=== PATIENT | male | born 1950 | race Caucasian/White ===

== ENCOUNTER 2021-06-18 07:29 | Emergency (ER) | payer OTHER, MEDICARE, MEDICAID ==
[~2021-06-18] VITALS: Ht 172.7 cm; Wt 71.0 kg
[2021-06-18 07:33] VITALS: BP 142/86
[2021-06-18] MEDS ORDERED: PRED20TA PO (09:31)
== END 2021-06-18 09:51 | disposition home or self-care (01) ==
LOC: ER 07:29
DX: J44.1 Chronic obstructive pulmonary disease with (acute) exacerbation (principal); Z20.822 Contact with and (suspected) exposure to COVID-19; R05.9 Cough, unspecified; R09.89 Other specified symptoms and signs involving the circulatory and respiratory systems; R06.02 Shortness of breath; Z79.899 Other long term (current) drug therapy
CPT/HCPCS: 71045; 87635; 99284; C9803

== ENCOUNTER 2021-10-09 13:19 | Emergency (ER) | payer OTHER, MEDICARE, MEDICAID ==
[~2021-10-09] VITALS: Ht 172.7 cm; Wt 72.7 kg
[~2021-10-09 13:19] MED LIST: ALBU0.63 NEB; ALBU8.5H17 IH; ASPI81TA53 PO; ATOR20TA66 PO; DICL100G30 TOP; LOP25T PO; LORA10TA7 PO; MONT-40 PO; TICA90TA PO
[2021-10-09 13:30] VITALS: BP 141/75
== END 2021-10-09 17:53 | disposition left against medical advice (07) ==
LOC: ER 13:20
DX: Z76.0 Encounter for issue of repeat prescription (principal); Z53.21 Procedure and treatment not carried out due to patient leaving prior to being seen by health care provider

== ENCOUNTER 2021-10-18 13:22 | Day surgery (SDC) | payer MEDICARE, MEDICAID ==
[2021-10-13 09:09] LABS: BASOPHILS % (AUTO) 0.6 % (0-1); EOSINOPHILS # (AUTO) 0.1 X10'3 (0-0.9); EOSINOPHILS % (AUTO) 2.1 % (0-6); HEMATOCRIT 44.8 % (42.0-52.0); HEMOGLOBIN 14.4 g/dl (14.0-17.9); LYMPHOCYTES % (AUTO) 14.7 % (21-51); MEAN CORPUSCULAR HGB CONC 32.2 g/dL (33.0-36.5); MEAN CORPUSCULAR VOLUME 90.1 FL (78-98); MEAN PLATELET VOLUME 7.8 FL (7.4-10.4); MONOCYTES # (AUTO) 0.6 X10'3 (0-0.9); MONOCYTES % (AUTO) 8.7 % (2-12); NEUTROPHILS % (AUTO) 73.9 % (42-75); PLATELET COUNT 290 X10'3 (140-440); RED BLOOD COUNT 4.97 X10'6 (4.70-6.10); RED CELL DISTRIBUTION WIDTH 15.6 % (11.5-14.5); WHITE BLOOD COUNT 6.8 X10'3 (4.5-11.0)
[2021-10-13 09:20] LABS: APTT 28 SECONDS (22-32)
[2021-10-13 09:35] LABS: ANION GAP 8 (8-16); BLOOD UREA NITROGEN 13 MG/DL (7-18); BUN/CREATININE RATIO 14.6 (5.4-32.0); CALCIUM 8.8 MG/DL (8.5-10.1); CHLORIDE 109 MMOL/L (99-107); CREATININE 0.89 MG/DL (0.60-1.10); GLUCOSE 132 MG/DL (70-104); POTASSIUM 4.1 MMOL/L (3.5-5.1); SODIUM 146 MMOL/L (135-145); TOTAL CARBON DIOXIDE 29.1 MMOL/L (24-32); eGFR 85 ML/MIN
[2021-10-13 09:36] LABS: ALBUMIN 3.8 G/DL (3.4-5.0)
[~2021-10-18] VITALS: Ht 172.7 cm; Wt 73.0 kg
[2021-10-18] VITALS (9 sets, daily range): BP systolic 99–142; BP diastolic 59–73
[2021-10-18] MEDS ORDERED: normal saline 1,000 ML IV SCH (13:35)
[2021-10-18] MEDS ORDERED: LORazepam 0.5 MG tablet PO PRN (13:35)
[2021-10-18] MEDS ORDERED: diphenhydrAMINE 25mg capsule PO PRN (13:35)
[2021-10-18] MEDS ORDERED: METO25TA6 PO (13:39)
[2021-10-18] MEDS ORDERED: ASPI-1265 PO (13:39)
[2021-10-18] MEDS ORDERED: TICA90TA2 PO (13:39)
[2021-10-18] MEDS ORDERED: ATOR40TA72 PO (13:41)
[2021-10-18] MEDS ORDERED: nitroGLYCERIN-Tridil 50MG/D5W 250 ML IV ONE (14:23)
[2021-10-18] MEDS ORDERED: verapamil 2.5 mg/ml inj IV ONE (14:23)
[2021-10-18] MEDS ORDERED: fentaNYL/PF 50MCG/1 ML 2ML syringe ONE (14:24)
[2021-10-18] MEDS ORDERED: LIDOcaine 1% (10mg/ml)w/preservative inj. 20ml MDV ONE (14:24)
[2021-10-18] MEDS ORDERED: midazolam 1 mg/ML 2ml injection ONE (14:24)
[2021-10-18] MEDS ORDERED: iohexol 350MG/ML 100ml bottle IV ONE (14:24)
[2021-10-18] MEDS ORDERED: heparin 1,000unit/ml 10ml vial 10 ML ONE (14:24)
[2021-10-18] MEDS ORDERED: iohexol 350 MG/ML 50ML vial IV ONE (15:09)
[2021-10-18] MEDS ORDERED: HYDROcodone/acetaminophen 10/325mg tab PO PRN (16:05)
[2021-10-18] MEDS ORDERED: HYDROcodone/acetaminophen 5mg/325mg tablet PO PRN (16:05)
[2021-10-18] MEDS ORDERED: OXAZEpam 15mg capsule PO PRN (16:05)
[2021-10-18] MEDS ORDERED: ondansetron/PF 4mg/2ml inj IV PRN (16:05)
[2021-10-18] MEDS ORDERED: proCHLORperazine 10 MG/2 ml inj IV PRN (16:05)
== END 2021-10-18 18:00 | disposition home or self-care (01) ==
LOC: SSTAY O 13:22
PROVIDERS: ATTEND Internal Medicine Interventional Cardiology
DX: R94.39 Abnormal result of other cardiovascular function study (principal); R07.89 Other chest pain; I25.10 Atherosclerotic heart disease of native coronary artery without angina pectoris; I10 Essential (primary) hypertension; E78.5 Hyperlipidemia, unspecified; J44.9 Chronic obstructive pulmonary disease, unspecified; Z79.899 Other long term (current) drug therapy
CPT/HCPCS: 36415; 80048; 85025; 85610; 85730; 93005; 93459; 99152; C1769; C1894; J1644; J2250; J3010; J3490; J7030; Q0163; Q9967; A4620; A5120

== ENCOUNTER 2021-10-25 05:30 | Inpatient (IN) | payer MEDICARE, MEDICAID ==
[2021-10-21 11:30] LABS: BASOPHILS % (AUTO) 0.8 % (0-1); EOSINOPHILS % (AUTO) 0.4 % (0-6); LYMPHOCYTES # (AUTO) 0.9 X10'3 (1.1-4.8); LYMPHOCYTES % (AUTO) 15.7 % (21-51); MEAN CORPUSCULAR HEMOGLOBIN 29.5 PG (27.0-31.0); MEAN CORPUSCULAR HGB CONC 32.7 g/dL (33.0-36.5); MEAN CORPUSCULAR VOLUME 90.3 FL (78-98); MEAN PLATELET VOLUME 7.8 FL (7.4-10.4); MONOCYTES # (AUTO) 0.7 X10'3 (0-0.9); MONOCYTES % (AUTO) 11.5 % (2-12); NEUTROPHILS # (AUTO) 4.3 X10'3 (1.8-7.7); NEUTROPHILS % (AUTO) 71.6 % (42-75); PRE OP HEMATOCRIT 42.5 % (42.0-52.0); PRE OP HEMOGLOBIN 13.9 g/dL (14.0-17.9); PRE OP PLATELET COUNT 225 X10'3 (140-440)
[2021-10-21 11:33] LABS: CLARITY,URINE CLEAR (Clear); GLUCOSE, URINE NEGATIVE (Neg); KETONES,URINE NEGATIVE (Neg); LEUKOCYTE ESTERASE ,URINE NEGATIVE (Neg); NITRITES, URINE NEGATIVE (Neg); OCCULT BLOOD,URINE TRACE-INTACT (Neg); PROTEIN,URINE NEGATIVE (Neg); UROBILINOGEN,URINE 0.2 E.U/dL (0.2-1.0)
[2021-10-21 11:36] LABS: COLOR,URINE STRAW (Yellow); UA COLLECTION TYPE CLN CATCH MIDSTREAM
[2021-10-21 11:42] LABS: BACTERIA,URINE NONE SEEN /HPF (Neg); MUCUS STRANDS NONE SEEN /LPF (Neg); RBC,URINE 0-2 /HPF (0-2); SQUAMOUS EPITHELIAL CELL,UR NONE SEEN /LPF (FEW); WBC,URINE 0-4 /HPF (0-4)
[2021-10-21 11:46] LABS: PRE OP INR 1.1 INR; PRE OP PROTIME 11.2 SECONDS (9.0-12.0)
[2021-10-21 11:54] LABS: ALBUMIN 3.6 G/DL (3.4-5.0); ALKALINE PHOSPHATASE 93 IU/L (46-116); BLOOD UREA NITROGEN 10 MG/DL (7-18); BUN/CREATININE RATIO 10.8 (5.4-32.0); CALCIUM 8.4 MG/DL (8.5-10.1); CHLORIDE 103 MMOL/L (99-107); CREATININE 0.93 MG/DL (0.60-1.10); PRE OP ALT 19 U/L (30-65); PRE OP ANION GAP 13 (8-16); PRE OP AST 18 U/L (10-37); PRE OP BILIRUB, TOTAL 0.4 MG/DL (0.0-1.0); PRE OP GLUCOSE 105 MG/DL (70-104); PRE OP SODIUM 142 MMOL/L (135-145); TOTAL PROTEIN 7.2 G/DL (6.4-8.2); eGFR 80 ML/MIN
[2021-10-21 11:57] LABS: PRE OP POTASSIUM 4.2 MMOL/L (3.4-5.1)
[2021-10-24 06:30] LABS: ABG BASE EXCESS -1.2 mmol/L (-2.0-2.0); ABG OXYGEN SATURATION 94.9 % (94-97); ABG PCO2 (T) 37.2 mmHg (35.0-48.0); ABG PO2 (T) 71.6 mmHg (75.0-100.0); FCOHb 4.1 % (0.0-3.9); FMetHb 0.3 % (0.0-1.5); FO2Hb 90.7 % (94-97)
[~2021-10-25] VITALS: Ht 170.2 cm; Wt 72.3 kg
[2021-10-25] VITALS (25 sets, daily range): BP systolic 89–123; BP diastolic 39–89
[~2021-10-25 05:30] MED LIST changes: +ASPI-1265 PO; -ASPI81TA53 PO; -ATOR20TA66 PO; +ATOR40TA72 PO; +DOCUMENT DATE & TIME OF BETA-BLOCKER PO ONE; +FLUT16SP13 BOTHNARES; -LOP25T PO; +LORazepam 2 mg/ml vial IV PRN; +METO25TA6 PO; -TICA90TA PO; +TICA90TA2 PO; +albuterol 2.5 MG/3 ML nebule NEB ONE; +ceFAZolin 1000mg inj ONE; +cefazolin/dext.iso 2gm/50ml IV ONE; +epiNEPHrine 1 mg/ml inj ONE; +famotidine 20mg tablet PO ONE; +gabapentin 400mg capsule PO ONE; +ringers solution, lacted 1,000 ML IV SCH; +vancomycin 1,500 MG in NS 300ml IV soln IV ONE
[2021-10-25] MEDS ORDERED: ceFAZolin 1000mg inj ONE (05:48)
[2021-10-25] MEDS ORDERED: epiNEPHrine 1 mg/ml inj ONE (05:48)
[2021-10-25] MEDS: mupirocin 2% nasal ointment 1gm UD NS SCH ×3 (06:18→20:19)
[2021-10-25] MEDS ORDERED: Insulin Reg/NS 100units/100mL 100 ML IV SCH ×2 (06:30→10:50)
[2021-10-25] MEDS ORDERED: papaverine 30 mg/ml 2ml inj. IA ONE (07:00)
[2021-10-25] MEDS ORDERED: heparin 10,000 units/1 ML INJ IR ONE (07:00)
[2021-10-25] MEDS ORDERED: MIDAZolam 1mg/ml 10ml vial ONE (07:28)
[2021-10-25] MEDS ORDERED: SUFENTANIL CITRATE 50 MCG/ML 2ml ampule IV ONE (07:28)
[2021-10-25] MEDS ORDERED: 0.9 % SODIUM CHLORIDE 10 ML VIAL ONE ×3 (07:30→07:32)
[2021-10-25] MEDS ORDERED: LIDOcaine 2% (20mg/ml) 5ml vial ONE (07:30)
[2021-10-25] MEDS ORDERED: rocuronium 10mg/ml inj IV ONE ×3 (07:30→09:14)
[2021-10-25] MEDS ORDERED: propofol inj 20 ML IV ONE (07:30)
[2021-10-25] MEDS ORDERED: protamine sulf. 10mg/ml inj. IV ONE (07:35)
[2021-10-25] MEDS ORDERED: DOBUTamine/D5W 500mg/250ml premix IV ONE (07:35)
[2021-10-25] MEDS ORDERED: albumin (Human) 5% 250ml BOTTLE IV ONE (07:35)
[2021-10-25] MEDS ORDERED: midazolam 100mg in NS 100ml 100 ML IV PRN (07:35)
[2021-10-25] MEDS ORDERED: FENTANYL CITRATE/D5W/PF 100 ML IV PRN (07:35)
[2021-10-25] MEDS ORDERED: NORepinephrine 8 MG in NS 250 ML BAG (32 mcg/ml) IV ONE (07:35)
[2021-10-25] MEDS ORDERED: nitroGLYCERIN in D5W 50mg/250ml (Tridil) infusion IV ONE (07:35)
[2021-10-25] MEDS ORDERED: fentaNYL/PF 50MCG/1 ML 2ML syringe IV PRN (07:35)
[2021-10-25] MEDS ORDERED: LIDOcaine 1%/PF 5ML 10 MG/ML VIAL ONE (07:35)
[2021-10-25] MEDS ORDERED: aminocaproic acid 250 MG/1 ML inj. ONE ×2 (07:35→08:00)
[2021-10-25] MEDS ORDERED: midazolam 1 mg/ML 2ml injection IV ONE (07:35)
[2021-10-25] MEDS ORDERED: isoflurane 100ml inhalation liquid IH ONE (07:35)
[2021-10-25] MEDS ORDERED: heparin 10,000 units/1 ML INJ ONE (08:00)
[2021-10-25] MEDS ORDERED: calcium chloride 100 MG/1 ML inj IV ONE (08:00)
[2021-10-25] MEDS ORDERED: sodium bicarbonate (8.4%) 1 mEq/ml syringe ONE (08:00)
[2021-10-25] MEDS ORDERED: methylPREDNISolone sod succ 1000mg vial ONE (08:00)
[2021-10-25] MEDS ORDERED: albumin (human) 25% 100 ML IV solution IV ONE (08:00)
[2021-10-25] MEDS ORDERED: phenylephrine 10mg/ml inj. ONE (08:00)
[2021-10-25 08:30] LABS: ABG BASE EXCESS -0.8 mmol/L (-2.0-2.0); ABG HCO3 24.3 mmol/L (22.0-26.0); ABG OXYGEN SATURATION 99.9 % (94-97); ABG PCO2 41.9 mmHg (35.0-48.0); ABG PO2 496.7 mmHg (75.0-100.0); CL (ABG) 108 mmol/L (98-110); FCOHb 0.9 % (0.0-3.9); FMetHb 0.3 % (0.0-1.5); FO2Hb 98.7 % (94-97); GLUCOSE (ABG) 121 mg/dl (70-105); K (ABG) 4.8 mmol/L (3.5-5.0); TOTAL HEMOGLOBIN 12.6 G/dl (14.0-18.0)
[2021-10-25 08:38] LABS: ACT @ 1.70 U 316 SEC (193-297); ACT @ 2.84 U 431 SEC (260-420); BASELINE ACT 152 SEC (101-148); PATIENT WEIGHT 73.0k KG
[2021-10-25 09:09] LABS: ABG BASE EXCESS VENOUS 2.6 mmol/L (-2.0 - 2.0); ABG HCO3 VENOUS 28.5 mmol/L (21.0-28.0); ABG PCO2 VENOUS 50.7 mmHg (41.0-54.0); ABG PO2 VENOUS 45.9 mmHg (25.0-35.0); CL (ABG) 101 mmol/L (98-110); FHHb VENOUS 16.8 %; FMetHb VENOUS 0.3 % (0.0 - 0.5); FO2Hb VENOUS 81.9 %; GLUCOSE (ABG) 121 mg/dl (70-105); IONIZED CA (ABG) 0.89 mmol/L (1.10-1.43); K (ABG) 4.6 mmol/L (3.5-5.0)
[2021-10-25] MEDS ORDERED: ondansetron/PF 4mg/2ml inj ONE (09:14)
[2021-10-25] MEDS ORDERED: dexamethasone sod phosphate 4mg/ml inj. ONE (09:15)
[2021-10-25 09:19] LABS: ABG BASE EXCESS 1.4 mmol/L (-2.0-2.0); ABG HCO3 26.1 mmol/L (22.0-26.0); ABG OXYGEN SATURATION 99.6 % (94-97); ABG PCO2 41.4 mmHg (35.0-48.0); ABG PO2 408.5 mmHg (75.0-100.0); CL (ABG) 103 mmol/L (98-110); FCOHb 0.6 % (0.0-3.9); FMetHb 0.3 % (0.0-1.5); FO2Hb 98.7 % (94-97); GLUCOSE (ABG) 129 mg/dl (70-105); IONIZED CA (ABG) 0.94 mmol/L (1.10-1.43); K (ABG) 4.2 mmol/L (3.5-5.0); TOTAL HEMOGLOBIN 9.1 G/dl (14.0-18.0)
[2021-10-25 09:46] LABS: ABG BASE EXCESS 0.4 mmol/L (-2.0-2.0); ABG HCO3 25.1 mmol/L (22.0-26.0); ABG OXYGEN SATURATION 99.6 % (94-97); ABG PCO2 40.5 mmHg (35.0-48.0); ABG PO2 464.9 mmHg (75.0-100.0); CL (ABG) 103 mmol/L (98-110); FCOHb 0.3 % (0.0-3.9); FMetHb 0.3 % (0.0-1.5); GLUCOSE (ABG) 128 mg/dl (70-105); IONIZED CA (ABG) 0.97 mmol/L (1.10-1.43); K (ABG) 4.5 mmol/L (3.5-5.0); TOTAL HEMOGLOBIN 9.2 G/dl (14.0-18.0)
[2021-10-25 10:12] LABS: ABG HCO3 25.8 mmol/L (22.0-26.0); ABG OXYGEN SATURATION 99.5 % (94-97); ABG PO2 335.9 mmHg (75.0-100.0); CL (ABG) 106 mmol/L (98-110); FCOHb 0.1 % (0.0-3.9); FMetHb 0.3 % (0.0-1.5); FO2Hb 99.1 % (94-97); GLUCOSE (ABG) 133 mg/dl (70-105); K (ABG) 4.7 mmol/L (3.5-5.0); TOTAL HEMOGLOBIN 9.6 G/dl (14.0-18.0)
[2021-10-25 10:27] LABS: ABG BASE EXCESS -1.3 mmol/L (-2.0-2.0); ABG HCO3 23.2 mmol/L (22.0-26.0); ABG OXYGEN SATURATION 99.6 % (94-97); ABG PCO2 37.9 mmHg (35.0-48.0); ABG PO2 311.1 mmHg (75.0-100.0); CL (ABG) 109 mmol/L (98-110); FCOHb 0.6 % (0.0-3.9); FMetHb 0.3 % (0.0-1.5); FO2Hb 98.7 % (94-97); GLUCOSE (ABG) 125 mg/dl (70-105); IONIZED CA (ABG) 1.18 mmol/L (1.10-1.43); K (ABG) 4.5 mmol/L (3.5-5.0)
[2021-10-25 10:29] LABS: ACTIVATED CLOTTING TIME 113 SEC (101-148)
[2021-10-25] MEDS ORDERED: dextrose 50%-water 50ml dispensing syringe IV PRN (10:50)
[2021-10-25] MEDS ORDERED: morphine 2 MG/ML inj. syringe IV PRN (10:50)
[2021-10-25] MEDS ORDERED: HYDROcodone/acetaminophen 10/325mg tab PO PRN ×2 (10:50)
[2021-10-25] MEDS ORDERED: potassium Cl 20 mEq SR tablet PO PRN (10:50)
[2021-10-25] MEDS ORDERED: NOREPINEPHRINE BITARTRATE/D5W 250 ML IV PRN (10:50)
[2021-10-25] MEDS ORDERED: sodium phosphate inj. 15 MMOL in dextrose 5%-water 250 ML IV PRN (10:50)
[2021-10-25] MEDS ORDERED: bisacodyl 10mg suppository rectal RC PRN (10:50)
[2021-10-25] MEDS ORDERED: metoclopramide 5 mg/ml inj IV PRN (10:50)
[2021-10-25] MEDS ORDERED: potassium Cl 20mEq/100mL bag 100 ML IV PRN (10:50)
[2021-10-25] MEDS ORDERED: magnesium citrate 296ml oral solution PO PRN (10:50)
[2021-10-25] MEDS ORDERED: ondansetron/PF 4mg/2ml inj IV PRN (10:50)
[2021-10-25] MEDS ORDERED: mineral oil 133ml enema RC PRN (10:50)
[2021-10-25] MEDS ORDERED: magnesium 2GM in 50ml NS 50 ML IV PRN (10:50)
[2021-10-25] MEDS ORDERED: magnesium 4gm in 100ml NS 100 ML IV PRN (10:50)
[2021-10-25] MEDS ORDERED: insulin glargine (Lantus) pen - multi-dose SQ PRN (10:50)
[2021-10-25] MEDS ORDERED: acetaminophen 325mg tablet PO PRN ×2 (10:50)
[2021-10-25] MEDS ORDERED: nitroGLYCERIN-Tridil 50MG/D5W 250 ML IV SCH (10:50)
[2021-10-25] MEDS ORDERED: sodium phosphate inj. 30 MMOL in dextrose 5%-water 250 ML IV PRN (10:50)
[2021-10-25] MEDS ORDERED: magnesium hydroxide 30ml (MOM) UD suspension PO PRN (10:50)
[2021-10-25] MEDS ORDERED: potassium CL 10mEq/100ml bag 100 ML IV PRN (10:50)
[2021-10-25] MEDS ORDERED: morphine 4 MG/ML inj SYRINge IV PRN (10:50)
[2021-10-25] MEDS ORDERED: sodium chloride 0.45% 1,000 ML IV SCH (10:50)
[2021-10-25] MEDS ORDERED: niCARDipine-NS 40mg/200ml IVPB 200 ML IV PRN (10:50)
[2021-10-25] MEDS ORDERED: Neutra Phos packet PO PRN (10:50)
[2021-10-25 11:23] LABS: ABG BASE EXCESS -1.4 mmol/L (-2.0-2.0); ABG HCO3 24.1 mmol/L (22.0-26.0); ABG OXYGEN SATURATION 99.4 % (94-97); ABG PCO2 (T) 41.9 mmHg (35.0-48.0); ABG PO2 (T) 405.1 mmHg (75.0-100.0); FCOHb 0.3 % (0.0-3.9); FMetHb 0.4 % (0.0-1.5); FO2Hb 98.7 % (94-97); PATIENT TEMPERATURE 36.1; PEEP 5 cm H2O; RESPIRATORY RATE 12 b/min; TIDAL VOLUME 500 mL; TOTAL HEMOGLOBIN 11.6 G/dl (14.0-18.0)
[2021-10-25] MEDS: albumin (Human) 5% 250ml 250 ML IV PRN ×4 (11:45→21:23)
[2021-10-25 11:48] LABS: EOSINOPHILS # (AUTO) 0.1 X10'3 (0-0.9); EOSINOPHILS % (AUTO) 0.7 % (0-6); HEMOGLOBIN 10.5 g/dl (14.0-17.9); MONOCYTES # (AUTO) 0.4 X10'3 (0-0.9); RED BLOOD COUNT 3.57 X10'6 (4.70-6.10)
[2021-10-25 11:49] LABS: BASOPHILS % (AUTO) 0.1 % (0-1); HEMATOCRIT 32.4 % (42.0-52.0); LYMPHOCYTES # (AUTO) 1.1 X10'3 (1.1-4.8); LYMPHOCYTES % (AUTO) 9.5 % (21-51); MEAN CORPUSCULAR HEMOGLOBIN 29.4 PG (27.0-31.0); MEAN CORPUSCULAR HGB CONC 32.4 g/dL (33.0-36.5); MEAN CORPUSCULAR VOLUME 90.6 FL (78-98); MEAN PLATELET VOLUME 7.7 FL (7.4-10.4); MONOCYTES % (AUTO) 3.8 % (2-12); NEUTROPHILS % (AUTO) 85.9 % (42-75); PLATELET COUNT 150 X10'3 (140-440); RED CELL DISTRIBUTION WIDTH 15.6 % (11.5-14.5); WHITE BLOOD COUNT 11.6 X10'3 (4.5-11.0)
[2021-10-25 11:57] LABS: APTT 34 SECONDS (22-32)
[2021-10-25 12:06] LABS: ALANINE AMINOTRANSFERASE 11 U/L (12-78); ALBUMIN 2.5 G/DL (3.4-5.0); ALBUMIN/GLOBULIN RATIO 1.3 (1.1-1.5); ALKALINE PHOSPHATASE 52 IU/L (46-116); ANION GAP 9 (8-16); ASPARTATE AMINO TRANSFERASE 19 U/L (10-37); BILIRUBIN,TOTAL 0.3 MG/DL (0.1-1.0); BLOOD UREA NITROGEN 13 MG/DL (7-18); BUN/CREATININE RATIO 17.6 (5.4-32.0); CALCIUM 7.9 MG/DL (8.5-10.1); CHLORIDE 110 MMOL/L (99-107); CREATININE 0.74 MG/DL (0.60-1.10); GLUCOSE 155 MG/DL (70-104); PHOSPHORUS 3.1 MG/DL (2.3-4.5); POTASSIUM 4.4 MMOL/L (3.5-5.1); SODIUM 144 MMOL/L (135-145); TOTAL CARBON DIOXIDE 25.1 MMOL/L (24-32); TOTAL PROTEIN 4.5 G/DL (6.4-8.2); eGFR > 90 ML/MIN
[2021-10-25 12:16] LABS: MAGNESIUM 1.9 MG/DL (1.5-2.4)
--- NOTE | 2021-10-25 12:53 | NUR ---
Initial note: Received to room 2044, accompanied by Marcio Ram, and surgical crew. Placed on ventilator, dietary internship, arterial line and PA line pressure monitored. Chest tubes to suction at 20 cm. Huerta cath to gravity drainage. Dressings are dry and intact. Island dressing with small spots of blood soaking through, outlined. See assessment record. All vasoactive drugs are infusing via central line. to see briefly and will call back. FiO2 decreased with SaO2 levels.
--- NOTE | 2021-10-25 13:02 | NUR ---
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 Addendum: 10/25/21 at [address] Amended: Links added.
[2021-10-25] MEDS: gabapentin 300mg capsule PO SCH ×2 (13:05→21:22)
--- NOTE | 2021-10-25 15:41 | NUR ---
MD Visit Dr. Cantu to see. Updated on pts condition. Requested albumin for pt to address "soft BP". Pt turned and coughed significantly. Suctioned for small amt of thin brownish secretions. Placed on SBT, pt breathing on his own.
[2021-10-25] MEDS: ceFAZolin/D5W- 1GM premix 50 ML IV SCH (16:46)
--- NOTE | 2021-10-25 18:06 | NUR ---
Shift Note Pt did well post op. Was able to weakly follow commands: open eyes, squeeze hands, wiggle toes. Could not stay awake long enough to wean from vent.
--- NOTE | 2021-10-25 18:15 | NUR ---
Problems reprioritized. Patient report given, questions answered & plan of care reviewed with Stephanie RICHADRS.
--- NOTE | 2021-10-25 18:20 | NUR ---
Patient in room ICU 2044. I have received report from Ana RICHARDS and Jarrell RICHARDS and had the opportunity to ask questions and assume patient care.
--- NOTE | 2021-10-25 18:45 | NUR ---
PT is intubated and mechanically vented, tolerating well with O2 sat >95%. PT is sleepy but does wake up and follows commands, squeezed bilat hands but did not open his eyes at first but did after some effort. PT able to wiggle toes on bilat feet. PT in SR. CT's x3 to wall suction with serosanguineous drainage noted. Huerta in place draining to gravity, clear yellow urine noted. Per report PT's U/O has been around 30ml/hr. All lines have been zeroed, all vaso active meds are being infused through the RT IJ. Bed is locked and low. Will continue to monitor.
[2021-10-25 18:47] LABS: BASOPHILS % (AUTO) 0.1 % (0-1); EOSINOPHILS % (AUTO) 0 % (0-6); HEMATOCRIT 30.1 % (42.0-52.0); HEMOGLOBIN 9.8 g/dl (14.0-17.9); LYMPHOCYTES # (AUTO) 0.5 X10'3 (1.1-4.8); LYMPHOCYTES % (AUTO) 5.1 % (21-51); MEAN CORPUSCULAR HEMOGLOBIN 29.2 PG (27.0-31.0); MEAN CORPUSCULAR HGB CONC 32.7 g/dL (33.0-36.5); MEAN CORPUSCULAR VOLUME 89.4 FL (78-98); MONOCYTES # (AUTO) 0.3 X10'3 (0-0.9); MONOCYTES % (AUTO) 3.8 % (2-12); NEUTROPHILS # (AUTO) 8.2 X10'3 (1.8-7.7); PLATELET COUNT 170 X10'3 (140-440); RED BLOOD COUNT 3.37 X10'6 (4.70-6.10); RED CELL DISTRIBUTION WIDTH 15.6 % (11.5-14.5)
[2021-10-25 18:57] LABS: ALBUMIN 3.5 G/DL (3.4-5.0); ANION GAP 12 (8-16); BLOOD UREA NITROGEN 14 MG/DL (7-18); BUN/CREATININE RATIO 16.1 (5.4-32.0); CALCIUM 7.4 MG/DL (8.5-10.1); CHLORIDE 111 MMOL/L (99-107); CREATININE 0.87 MG/DL (0.60-1.10); GLUCOSE 114 MG/DL (70-104); MAGNESIUM 2.9 MG/DL (1.5-2.4); PHOSPHORUS 2.3 MG/DL (2.3-4.5); SODIUM 147 MMOL/L (135-145); TOTAL CARBON DIOXIDE 23.8 MMOL/L (24-32); eGFR 87 ML/MIN
[2021-10-25 18:58] LABS: POTASSIUM 4.4 MMOL/L (3.5-5.1)
[2021-10-25] MEDS: sennosides/docusate sodium tablet PO SCH (20:00)
[2021-10-25] MEDS: atorvastatin 10mg tablet PO SCH (20:19)
[2021-10-25] MEDS: montelukast 10mg tablet PO SCH (20:19)
[2021-10-25] MEDS: vancomycin/NS 1 GM ADD-VANTAGE 250 ML IV SCH (20:19)
[2021-10-25 21:04] LABS: ABG BASE EXCESS -4.9 mmol/L (-2.0-2.0); ABG HCO3 20.9 mmol/L (22.0-26.0); ABG OXYGEN SATURATION 96.1 % (94-97); ABG PCO2 (T) 41.3 mmHg (35.0-48.0); ABG PO2 (T) 91.6 mmHg (75.0-100.0); FCOHb 0.3 % (0.0-3.9); FMetHb 0.4 % (0.0-1.5); FO2Hb 95.4 % (94-97); PATIENT TEMPERATURE 36.9; PEEP 5 cm H2O
--- NOTE | 2021-10-25 21:10 | NUR ---
Call placed to Dr Cantu to report ABG results as well as weaning parameters. Orders received to extubate PT. Dr Cantu asked what the PT's PA pressures were as well as PT's urine output, reported numbers and received order to give 1 bottle of 5% albumin. Will continue to monitor.
--- NOTE | 2021-10-25 21:20 | NUR ---
PT extubated @ 2015 and tolerated well. Placed on 4L O2 to NC and O2 sat >94%. PT able to state name. PT denies pain at this time. Will continue to monitor.
[2021-10-26] VITALS (23 sets, daily range): BP systolic 88–131; BP diastolic 52–85
[2021-10-26] MEDS: ceFAZolin/D5W- 1GM premix 50 ML IV SCH ×4 (00:32→23:25)
[2021-10-26 03:02] LABS: BASOPHILS % (AUTO) 0 % (0-1); EOSINOPHILS % (AUTO) 0 % (0-6); HEMATOCRIT 27.9 % (42.0-52.0); HEMOGLOBIN 9.1 g/dl (14.0-17.9); LYMPHOCYTES # (AUTO) 0.6 X10'3 (1.1-4.8); LYMPHOCYTES % (AUTO) 6.7 % (21-51); MEAN CORPUSCULAR HEMOGLOBIN 29.4 PG (27.0-31.0); MEAN CORPUSCULAR HGB CONC 32.5 g/dL (33.0-36.5); MEAN CORPUSCULAR VOLUME 90.4 FL (78-98); MEAN PLATELET VOLUME 8.3 FL (7.4-10.4); MONOCYTES # (AUTO) 0.5 X10'3 (0-0.9); MONOCYTES % (AUTO) 5.3 % (2-12); NEUTROPHILS # (AUTO) 8.4 X10'3 (1.8-7.7); PLATELET COUNT 137 X10'3 (140-440); RED BLOOD COUNT 3.09 X10'6 (4.70-6.10); RED CELL DISTRIBUTION WIDTH 15.9 % (11.5-14.5); WHITE BLOOD COUNT 9.5 X10'3 (4.5-11.0)
[2021-10-26 03:05] LABS: APTT 31 SECONDS (22-32)
[2021-10-26 03:25] LABS: ANION GAP 9 (8-16); BLOOD UREA NITROGEN 14 MG/DL (7-18); BUN/CREATININE RATIO 17.5 (5.4-32.0); CHLORIDE 111 MMOL/L (99-107); GLUCOSE 122 MG/DL (70-104); POTASSIUM 4.5 MMOL/L (3.5-5.1); SODIUM 145 MMOL/L (135-145); TOTAL CARBON DIOXIDE 24.6 MMOL/L (24-32)
[2021-10-26 03:26] LABS: ALANINE AMINOTRANSFERASE 15 U/L (12-78); ALBUMIN 3.3 G/DL (3.4-5.0); ALBUMIN/GLOBULIN RATIO 1.7 (1.1-1.5); ALKALINE PHOSPHATASE 47 IU/L (46-116); ASPARTATE AMINO TRANSFERASE 65 U/L (10-37); BILIRUBIN,TOTAL 0.2 MG/DL (0.1-1.0); CALCIUM 7.3 MG/DL (8.5-10.1); MAGNESIUM 2.6 MG/DL (1.5-2.4); TOTAL PROTEIN 5.2 G/DL (6.4-8.2); eGFR > 90 ML/MIN
[2021-10-26 03:43] LABS: PHOSPHORUS 4.7 MG/DL (2.3-4.5)
--- NOTE | 2021-10-26 06:35 | NUR ---
Problems reprioritized. Patient report given to, questions answered & plan of care reviewed with
[2021-10-26] MEDS ORDERED: mineral oil/petrolatum ophthal oint EACHEYE SCH (08:00)
[2021-10-26] MEDS: fluticasone nasal spray 16GM bottle NS SCH (08:00)
[2021-10-26] MEDS: mupirocin 2% nasal ointment 1gm UD NS SCH ×2 (08:00→20:25)
[2021-10-26] MEDS: clopidogrel 75mg tablet PO SCH (08:00)
--- NOTE | 2021-10-26 08:42 | NUR ---
Line removal Art line was removed from left writs. Cath tip in tact. Hayes Chester and cordis removed from Rt IJ with tips in tact. Pt tolerated removal well. New dressing applied to IJ quad lumen.
[2021-10-26] MEDS: aspirin 325mg tablet, delayed-release (Ecotrin) PO SCH (09:09)
[2021-10-26] MEDS: metoprolol tartrate 12.5mg (1/2 tablet) PO SCH ×2 (09:09→19:31)
[2021-10-26] MEDS: gabapentin 300mg capsule PO SCH ×3 (09:09→20:24)
[2021-10-26] MEDS: sennosides/docusate sodium tablet PO SCH ×2 (09:10→09:19)
[2021-10-26] MEDS: loratadine 10mg tablet PO SCH (09:10)
[2021-10-26] MEDS: vancomycin/NS 1 GM ADD-VANTAGE 250 ML IV SCH ×2 (09:11→20:25)
[2021-10-26] MEDS: heparin, porcine 5000 units/ml vial SQ SCH ×3 (09:15→23:25)
[2021-10-26] MEDS ORDERED: dextrose 50%-water 50ml dispensing syringe IV PRN ×2 (19:15)
[2021-10-26] MEDS ORDERED: DEXTROSE 15 GM of carb/4 tabs (each vial/BOTTLE has 4 tablets) PO PRN (19:15)
[2021-10-26] MEDS: albuterol 2.5 MG/3 ML nebule NEB PRN (20:08)
[2021-10-26] MEDS ORDERED: NORepinephrine 8mg/ 250ml NS 250 ML IV PRN (20:20)
[2021-10-26] MEDS: montelukast 10mg tablet PO SCH (20:24)
[2021-10-26] MEDS: atorvastatin 10mg tablet PO SCH (20:25)
[2021-10-26] MEDS: insulin glargine (Lantus) pen - multi-dose SQ SCH (20:43)
[2021-10-26] MEDS: insulin Lispro (HumaLOG) vial - multi-dose SQ SCH (20:44)
--- NOTE | 2021-10-26 23:32 | NUR ---
Student documentation: I have reviewed and agree with all interventions, assessments performed and documented by Caitlin Vallecillo. Student Medication Administration: For this medication-pass time frame, all medication were reviewed, dispensed, administered and documented per hospital policy by Caitlin Vallecillo.
[2021-10-27] VITALS (20 sets, daily range): BP systolic 111–139; BP diastolic 57–84
[2021-10-27 02:46] LABS: BASOPHILS % (AUTO) 0 % (0-1); EOSINOPHILS % (AUTO) 0 % (0-6); HEMATOCRIT 27.6 % (42.0-52.0); LYMPHOCYTES # (AUTO) 0.7 X10'3 (1.1-4.8); LYMPHOCYTES % (AUTO) 5.9 % (21-51); MEAN CORPUSCULAR HEMOGLOBIN 29.4 PG (27.0-31.0); MEAN CORPUSCULAR HGB CONC 32.5 g/dL (33.0-36.5); MEAN CORPUSCULAR VOLUME 90.5 FL (78-98); MEAN PLATELET VOLUME 8.3 FL (7.4-10.4); MONOCYTES % (AUTO) 8.2 % (2-12); NEUTROPHILS # (AUTO) 10.4 X10'3 (1.8-7.7); NEUTROPHILS % (AUTO) 85.9 % (42-75); PLATELET COUNT 146 X10'3 (140-440); RED BLOOD COUNT 3.05 X10'6 (4.70-6.10); WHITE BLOOD COUNT 12.1 X10'3 (4.5-11.0)
[2021-10-27 02:59] LABS: ALBUMIN 3.3 G/DL (3.4-5.0); ANION GAP 5 (8-16); BLOOD UREA NITROGEN 18 MG/DL (7-18); BUN/CREATININE RATIO 23.4 (5.4-32.0); CALCIUM 7.9 MG/DL (8.5-10.1); CHLORIDE 105 MMOL/L (99-107); CREATININE 0.77 MG/DL (0.60-1.10); GLUCOSE 214 MG/DL (70-104); POTASSIUM 4.9 MMOL/L (3.5-5.1); SODIUM 140 MMOL/L (135-145); TOTAL CARBON DIOXIDE 29.6 MMOL/L (24-32); eGFR > 90 ML/MIN
[2021-10-27 03:09] LABS: MAGNESIUM 2.5 MG/DL (1.5-2.4)
--- NOTE | 2021-10-27 06:12 | NUR ---
Report given to Nate RICHARDS.
[2021-10-27] MEDS: insulin Lispro (HumaLOG) vial - multi-dose SQ SCH ×3 (07:38→19:17)
[2021-10-27] MEDS ORDERED: potassium Cl 40MEQ/1/2NS 520ml 520 ML IV PRN (07:40)
[2021-10-27] MEDS ORDERED: magnesium 4gm in 100ml NS 100 ML IV PRN (07:40)
[2021-10-27] MEDS ORDERED: magnesium 2GM in 50ml NS 50 ML IV PRN (07:40)
[2021-10-27] MEDS ORDERED: potassium Cl 40MEQ/250ML bag 250 ML IV PRN (07:40)
[2021-10-27] MEDS ORDERED: potassium Cl 20mEq/100mL bag 100 ML IV PRN (07:40)
[2021-10-27] MEDS ORDERED: potassium CL 10mEq/100ml bag 100 ML IV PRN (07:40)
[2021-10-27] MEDS ORDERED: potassium Cl 20 mEq SR tablet PO PRN (07:40)
[2021-10-27] MEDS: albuterol 2.5 MG/3 ML nebule NEB PRN ×2 (07:59→20:10)
[2021-10-27] MEDS: magnesium Cl slow-release 64mg tablet PO SCH ×2 (08:00→20:21)
[2021-10-27] MEDS: mupirocin 2% nasal ointment 1gm UD NS SCH (08:00)
[2021-10-27] MEDS: potassium Cl 20 mEq SR tablet PO SCH ×2 (08:00→20:22)
[2021-10-27] MEDS: fluticasone nasal spray 16GM bottle NS SCH (08:00)
[2021-10-27] MEDS: gabapentin 300mg capsule PO SCH (08:30)
[2021-10-27] MEDS: aspirin 325mg tablet, delayed-release (Ecotrin) PO SCH (08:30)
[2021-10-27] MEDS: metoprolol tartrate 12.5mg (1/2 tablet) PO SCH ×2 (08:30→20:22)
[2021-10-27] MEDS: pantoprazole 40mg Tablet.DR PO SCH (08:31)
[2021-10-27] MEDS: sennosides/docusate sodium tablet PO SCH ×2 (08:31→20:21)
[2021-10-27] MEDS: loratadine 10mg tablet PO SCH (08:31)
[2021-10-27] MEDS: heparin, porcine 5000 units/ml vial SQ SCH ×2 (08:31→15:11)
[2021-10-27] MEDS: clopidogrel 75mg tablet PO SCH (08:31)
--- NOTE | 2021-10-27 11:28 | NUR ---
Nutrition Consult: Pt s/p CABGx3 this admit. Pt seen by RD for written/verbal high protein/HH diet eds w/ RD contact information provided. Pt declines Ajay reports well stocked on Ensures and drinks them at home; is agreeable to vanilla Ensure High Protein [facility] PA notified. RD encouraged pt to contact dietitian's office if further questions/concerns. Addendum: 10/27/21 at [address] Amended: Links added.
[2021-10-27] MEDS: atorvastatin 10mg tablet PO SCH (20:21)
[2021-10-27] MEDS: montelukast 10mg tablet PO SCH (20:21)
[2021-10-27] MEDS: insulin glargine (Lantus) pen - multi-dose SQ SCH (22:36)
[2021-10-28] MEDS: heparin, porcine 5000 units/ml vial SQ SCH ×3 (00:50→16:17)
[2021-10-28 06:06] VITALS: BP 134/79
[2021-10-28 06:14] LABS: BASOPHILS % (AUTO) 0.1 % (0-1); EOSINOPHILS % (AUTO) 0.2 % (0-6); HEMATOCRIT 29.8 % (42.0-52.0); HEMOGLOBIN 9.7 g/dl (14.0-17.9); LYMPHOCYTES # (AUTO) 1.2 X10'3 (1.1-4.8); LYMPHOCYTES % (AUTO) 9.8 % (21-51); MEAN CORPUSCULAR HEMOGLOBIN 29.3 PG (27.0-31.0); MEAN CORPUSCULAR HGB CONC 32.7 g/dL (33.0-36.5); MEAN CORPUSCULAR VOLUME 89.5 FL (78-98); MEAN PLATELET VOLUME 8.6 FL (7.4-10.4); MONOCYTES # (AUTO) 1.2 X10'3 (0-0.9); MONOCYTES % (AUTO) 9.4 % (2-12); NEUTROPHILS % (AUTO) 80.5 % (42-75); PLATELET COUNT 186 X10'3 (140-440); RED BLOOD COUNT 3.33 X10'6 (4.70-6.10); RED CELL DISTRIBUTION WIDTH 15.6 % (11.5-14.5); WHITE BLOOD COUNT 12.5 X10'3 (4.5-11.0)
[2021-10-28 06:56] LABS: GLUCOSE 108 MG/DL (70-104); SODIUM 143 MMOL/L (135-145)
[2021-10-28 06:57] LABS: ALBUMIN 3.1 G/DL (3.4-5.0); ANION GAP 9 (8-16); BLOOD UREA NITROGEN 19 MG/DL (7-18); BUN/CREATININE RATIO 27.9 (5.4-32.0); CALCIUM 8.1 MG/DL (8.5-10.1); CHLORIDE 106 MMOL/L (99-107); CREATININE 0.68 MG/DL (0.60-1.10); TOTAL CARBON DIOXIDE 27.8 MMOL/L (24-32); eGFR > 90 ML/MIN
[2021-10-28 07:00] LABS: POTASSIUM 4.7 MMOL/L (3.5-5.1)
[2021-10-28] MEDS: lactose-reduced food (Ensure High Protein) 237ml bottle PO SCH ×2 (07:30→12:30)
[2021-10-28] MEDS: fluticasone nasal spray 16GM bottle NS SCH (08:00)
[2021-10-28] MEDS: metoprolol tartrate 12.5mg (1/2 tablet) PO SCH ×2 (08:08→19:42)
[2021-10-28] MEDS: pantoprazole 40mg Tablet.DR PO SCH (08:09)
[2021-10-28] MEDS: magnesium Cl slow-release 64mg tablet PO SCH ×2 (08:09→19:41)
[2021-10-28] MEDS: loratadine 10mg tablet PO SCH (08:14)
[2021-10-28] MEDS: clopidogrel 75mg tablet PO SCH (08:15)
[2021-10-28] MEDS: aspirin 325mg tablet, delayed-release (Ecotrin) PO SCH (08:16)
[2021-10-28] MEDS: sennosides/docusate sodium tablet PO SCH ×2 (08:16→19:43)
[2021-10-28] MEDS: potassium Cl 20 mEq SR tablet PO SCH ×2 (08:19→19:43)
[2021-10-28] MEDS: albuterol 2.5 MG/3 ML nebule NEB PRN ×4 (08:54→23:19)
[2021-10-28] MEDS ORDERED: furosemide 40mg/4ml inj IV ONE (09:05)
[2021-10-28 11:00] VITALS: BP 122/80
[2021-10-28] MEDS: insulin Lispro (HumaLOG) vial - multi-dose SQ SCH ×2 (13:57→18:24)
[2021-10-28 18:00] VITALS: BP 116/76
--- NOTE | 2021-10-28 18:35 | NUR ---
Problems reprioritized. Patient report given, questions answered & plan of care reviewed with Yessenia RICHARDS.
[2021-10-28] MEDS: atorvastatin 10mg tablet PO SCH (21:14)
[2021-10-28] MEDS: montelukast 10mg tablet PO SCH (21:14)
[2021-10-28] MEDS: insulin glargine (Lantus) pen - multi-dose SQ SCH (21:17)
[2021-10-28 22:00] VITALS: BP 102/70
[2021-10-29] MEDS: heparin, porcine 5000 units/ml vial SQ SCH ×3 (00:15→16:16)
[2021-10-29 06:00] VITALS: BP 112/68
--- NOTE | 2021-10-29 06:33 | NUR ---
Patient in room PCU 3021. I have received report from Yessenia RICHARDS and had the opportunity to ask questions and assume patient care.
[2021-10-29] MEDS: albuterol 2.5 MG/3 ML nebule NEB PRN ×5 (06:40→23:09)
[2021-10-29 07:43] LABS: BASOPHILS % (AUTO) 0.1 % (0-1); EOSINOPHILS # (AUTO) 0.1 X10'3 (0-0.9); EOSINOPHILS % (AUTO) 1.1 % (0-6); HEMATOCRIT 32.4 % (42.0-52.0); HEMOGLOBIN 10.9 g/dl (14.0-17.9); LYMPHOCYTES # (AUTO) 1.4 X10'3 (1.1-4.8); LYMPHOCYTES % (AUTO) 13.7 % (21-51); MEAN CORPUSCULAR HEMOGLOBIN 30.1 PG (27.0-31.0); MEAN CORPUSCULAR HGB CONC 33.6 g/dL (33.0-36.5); MEAN CORPUSCULAR VOLUME 89.7 FL (78-98); MEAN PLATELET VOLUME 8.2 FL (7.4-10.4); MONOCYTES # (AUTO) 1.1 X10'3 (0-0.9); NEUTROPHILS # (AUTO) 7.4 X10'3 (1.8-7.7); NEUTROPHILS % (AUTO) 74.1 % (42-75); PLATELET COUNT 248 X10'3 (140-440); RED BLOOD COUNT 3.61 X10'6 (4.70-6.10); RED CELL DISTRIBUTION WIDTH 15.3 % (11.5-14.5)
[2021-10-29 07:56] LABS: ALBUMIN 3.1 G/DL (3.4-5.0); ANION GAP 9 (8-16); BLOOD UREA NITROGEN 19 MG/DL (7-18); CALCIUM 8.6 MG/DL (8.5-10.1); CHLORIDE 103 MMOL/L (99-107); CREATININE 0.73 MG/DL (0.60-1.10); GLUCOSE 121 MG/DL (70-104); SODIUM 143 MMOL/L (135-145); TOTAL CARBON DIOXIDE 31.3 MMOL/L (24-32); eGFR > 90 ML/MIN
[2021-10-29] MEDS: fluticasone nasal spray 16GM bottle NS SCH (08:00)
[2021-10-29] MEDS: potassium Cl 20 mEq SR tablet PO SCH ×2 (08:00→20:02)
[2021-10-29] MEDS: aspirin 325mg tablet, delayed-release (Ecotrin) PO SCH (08:37)
[2021-10-29] MEDS: metoprolol tartrate 12.5mg (1/2 tablet) PO SCH ×2 (08:37→20:02)
[2021-10-29] MEDS: clopidogrel 75mg tablet PO SCH (08:38)
[2021-10-29] MEDS: loratadine 10mg tablet PO SCH (08:38)
[2021-10-29] MEDS: pantoprazole 40mg Tablet.DR PO SCH (08:38)
[2021-10-29] MEDS: magnesium Cl slow-release 64mg tablet PO SCH ×2 (08:38→20:02)
[2021-10-29] MEDS: sennosides/docusate sodium tablet PO SCH ×2 (08:38→20:00)
[2021-10-29] MEDS: insulin Lispro (HumaLOG) vial - multi-dose SQ SCH (09:34)
[2021-10-29 10:45] VITALS: BP 113/74
[2021-10-29] MEDS: lactose-reduced food (Ensure High Protein) 237ml bottle PO SCH (12:30)
[2021-10-29 15:00] VITALS: BP 94/61
[2021-10-29 18:00] VITALS: BP 103/69
--- NOTE | 2021-10-29 18:19 | NUR ---
Problems reprioritized. Patient report given, questions answered & plan of care reviewed with Brea RICHARDS.
[2021-10-29] MEDS: montelukast 10mg tablet PO SCH (20:05)
[2021-10-29] MEDS: atorvastatin 10mg tablet PO SCH (20:05)
[2021-10-29 22:00] VITALS: BP 103/66
[2021-10-29] MEDS: insulin glargine (Lantus) pen - multi-dose SQ SCH (22:24)
[2021-10-30] MEDS: heparin, porcine 5000 units/ml vial SQ SCH ×3 (00:23→15:52)
[2021-10-30 02:30] VITALS: BP 103/58
[2021-10-30] MEDS: albuterol 2.5 MG/3 ML nebule NEB PRN ×5 (04:26→23:00)
[2021-10-30 06:00] VITALS: BP 108/72
--- NOTE | 2021-10-30 06:44 | NUR ---
Patient in room PCU 3021. I have received report from Cori RICHARDS and had the opportunity to ask questions and assume patient care.
[2021-10-30 07:15] LABS: ANION GAP 7 (8-16); BLOOD UREA NITROGEN 20 MG/DL (7-18); CALCIUM 8.6 MG/DL (8.5-10.1); CHLORIDE 107 MMOL/L (99-107); CREATININE 0.74 MG/DL (0.60-1.10); GLUCOSE 99 MG/DL (70-104); POTASSIUM 4.5 MMOL/L (3.5-5.1); SODIUM 146 MMOL/L (135-145); TOTAL CARBON DIOXIDE 32.5 MMOL/L (24-32); eGFR > 90 ML/MIN
[2021-10-30 07:23] LABS: BASOPHILS % (AUTO) 0.1 % (0-1); EOSINOPHILS # (AUTO) 0.2 X10'3 (0-0.9); EOSINOPHILS % (AUTO) 1.7 % (0-6); HEMATOCRIT 31.1 % (42.0-52.0); HEMOGLOBIN 10.5 g/dl (14.0-17.9); LYMPHOCYTES # (AUTO) 1.5 X10'3 (1.1-4.8); LYMPHOCYTES % (AUTO) 16.1 % (21-51); MEAN CORPUSCULAR HEMOGLOBIN 30.1 PG (27.0-31.0); MEAN CORPUSCULAR HGB CONC 33.8 g/dL (33.0-36.5); MEAN CORPUSCULAR VOLUME 88.9 FL (78-98); MEAN PLATELET VOLUME 8.1 FL (7.4-10.4); MONOCYTES # (AUTO) 1.2 X10'3 (0-0.9); MONOCYTES % (AUTO) 12.8 % (2-12); NEUTROPHILS # (AUTO) 6.5 X10'3 (1.8-7.7); NEUTROPHILS % (AUTO) 69.3 % (42-75); PLATELET COUNT 282 X10'3 (140-440); RED BLOOD COUNT 3.49 X10'6 (4.70-6.10); RED CELL DISTRIBUTION WIDTH 15.5 % (11.5-14.5); WHITE BLOOD COUNT 9.4 X10'3 (4.5-11.0)
[2021-10-30] MEDS: sennosides/docusate sodium tablet PO SCH ×2 (08:00→20:48)
--- NOTE | 2021-10-30 09:34 | NUR ---
Initial: Pt POD#5 from CABGx3 and endarterectomy per EMR. Currently on Heart healthy diet w/ mostly 100% intake of meals as well as 100% intake of Ensure High protein WL, meeting est nutrient needs at this time. LBM 4/ receiving routine Senna. No new nutrition intervention implemented at this time, will continue to monitor. Recs: 1. Continue Heart healthy diet as tolerated 2. Ensure High protein WL 3. Bowel care per rx 4. Weekly wts Addendum: 10/30/21 at [address] Amended: Links added.
[2021-10-30] MEDS: insulin Lispro (HumaLOG) vial - multi-dose SQ SCH (10:00)
[2021-10-30] MEDS: fluticasone nasal spray 16GM bottle NS SCH (10:03)
[2021-10-30] MEDS: loratadine 10mg tablet PO SCH (10:03)
[2021-10-30] MEDS: aspirin 325mg tablet, delayed-release (Ecotrin) PO SCH (10:04)
[2021-10-30] MEDS: pantoprazole 40mg Tablet.DR PO SCH (10:04)
[2021-10-30] MEDS: magnesium Cl slow-release 64mg tablet PO SCH ×2 (10:04→20:00)
[2021-10-30] MEDS: clopidogrel 75mg tablet PO SCH (10:04)
[2021-10-30] MEDS: potassium Cl 20 mEq SR tablet PO SCH ×2 (10:04→20:00)
[2021-10-30] MEDS: metoprolol tartrate 12.5mg (1/2 tablet) PO SCH ×2 (10:05→20:48)
[2021-10-30 11:00] VITALS: BP 106/70
[2021-10-30] MEDS: dextrose ORAL solution 15 GM/59 ML bottle PO PRN ×2 (12:15→12:21)
[2021-10-30] MEDS: lactose-reduced food (Ensure High Protein) 237ml bottle PO SCH (12:30)
--- NOTE | 2021-10-30 14:00 | NUR ---
I spoke with Dr. Cantu about patient low blood sugar, he said DC insulin and accu-checks since patient dose not take insulin at home.
[2021-10-30 15:00] VITALS: BP 106/69
[2021-10-30 18:00] VITALS: BP 110/66
--- NOTE | 2021-10-30 18:17 | NUR ---
Problems reprioritized. Patient report given, questions answered & plan of care reviewed with Caroline RICHARDS.
[2021-10-30] MEDS: atorvastatin 10mg tablet PO SCH (20:48)
[2021-10-30] MEDS: montelukast 10mg tablet PO SCH (20:48)
--- NOTE | 2021-10-30 20:50 | NUR ---
Held potassium since lab was 4.5 and held Mg since most recent lab on 10/27 was 2.5
[2021-10-30 22:00] VITALS: BP 88/54
[2021-10-31] MEDS: heparin, porcine 5000 units/ml vial SQ SCH ×2 (00:02→08:17)
[2021-10-31 02:00] VITALS: BP 85/45
[2021-10-31] MEDS: albuterol 2.5 MG/3 ML nebule NEB PRN ×2 (03:35→06:45)
[2021-10-31 06:00] VITALS: BP 97/60
[2021-10-31 07:04] LABS: ALBUMIN 2.9 G/DL (3.4-5.0); ANION GAP 5 (8-16); BLOOD UREA NITROGEN 20 MG/DL (7-18); BUN/CREATININE RATIO 27.8 (5.4-32.0); CALCIUM 8.6 MG/DL (8.5-10.1); CHLORIDE 106 MMOL/L (99-107); CREATININE 0.72 MG/DL (0.60-1.10); GLUCOSE 140 MG/DL (70-104); POTASSIUM 4.5 MMOL/L (3.5-5.1); SODIUM 141 MMOL/L (135-145); TOTAL CARBON DIOXIDE 29.6 MMOL/L (24-32); eGFR > 90 ML/MIN
[2021-10-31] MEDS: sennosides/docusate sodium tablet PO SCH (08:00)
[2021-10-31] MEDS: fluticasone nasal spray 16GM bottle NS SCH (08:15)
[2021-10-31] MEDS: pantoprazole 40mg Tablet.DR PO SCH (08:16)
[2021-10-31] MEDS: loratadine 10mg tablet PO SCH (08:16)
[2021-10-31] MEDS: potassium Cl 20 mEq SR tablet PO SCH (08:16)
[2021-10-31] MEDS: clopidogrel 75mg tablet PO SCH (08:16)
[2021-10-31] MEDS: aspirin 325mg tablet, delayed-release (Ecotrin) PO SCH (08:16)
[2021-10-31] MEDS: magnesium Cl slow-release 64mg tablet PO SCH (08:17)
[2021-10-31 08:28] VITALS: BP_SYST 105
[2021-10-31] MEDS: metoprolol tartrate 12.5mg (1/2 tablet) PO SCH (08:28)
[2021-10-31] MEDS ORDERED: LOP12.5T PO (09:41)
[2021-10-31] MEDS ORDERED: CLOP75TA34 PO (09:41)
[2021-10-31] MEDS ORDERED: HYDR-3972 PO (09:41)
[2021-11-25] MEDS ORDERED: papaverine 30 mg/ml 2ml inj. ONE (08:00)
[2021-11-25] MEDS ORDERED: heparin 10,000 units/1 ML INJ ONE (08:00)
== END 2021-10-31 12:50 | disposition home or self-care (01) | DRG 236 ==
LOC: PAS IN 05:30 → ICU 2S 11:21 → PCU 3S 10-27 14:47
PROVIDERS: ADMIT Thoracic Surgery (Cardiothoracic Vascular Surgery); ATTEND Thoracic Surgery (Cardiothoracic Vascular Surgery)
PROC: 021109W Bypass Coronary Artery, Two Arteries from Aorta with Autologous Venous Tissue, Open Approach (ICD-10-PCS; 2021-10-25)
PROC: 06BQ4ZZ Excision of Left Saphenous Vein, Percutaneous Endoscopic Approach (ICD-10-PCS; 2021-10-25)
PROC: 02C10ZZ Extirpation of Matter from Coronary Artery, Two Arteries, Open Approach (ICD-10-PCS; 2021-10-25)
PROC: 5A1221Z Performance of Cardiac Output, Continuous (ICD-10-PCS; 2021-10-25)
PROC: B24BZZ4 Ultrasonography of Heart with Aorta, Transesophageal (ICD-10-PCS; 2021-10-25)
PROC: 02100Z9 Bypass Coronary Artery, One Artery from Left Internal Mammary, Open Approach (ICD-10-PCS; principal; 2021-10-25 07:35)
DX: I25.119 Atherosclerotic heart disease of native coronary artery with unspecified angina pectoris (principal); I10 Essential (primary) hypertension; J44.9 Chronic obstructive pulmonary disease, unspecified; J98.09 Other diseases of bronchus, not elsewhere classified; M19.90 Unspecified osteoarthritis, unspecified site; I25.2 Old myocardial infarction; Z72.0 Tobacco use; Z82.49 Family history of ischemic heart disease and other diseases of the circulatory system; Z95.5 Presence of coronary angioplasty implant and graft
CPT/HCPCS: 36415; 36600; 71045; 71046; 80048; 80053; 81001; 82330; 82435; 82803; 82947; 82948; 83036; 83735; 84100; 84132; 84295; 85018; 85025; 85347; 85384; 85610; 85730; 86885; 86900; 86901; 86920; 87070; 87081; 87635; 88300; 93005; 93312; 93325; 94002; 94060; 94640; 94667; 94668; 94760; 97116; 97161; 97530; A4618; A6258; A6449; A7000; A7048; C1751; G0378; J0171; J0690; J1100; J1250; J1644; J1815; J1940; J2060; J2150; J2250; J2370; J2405; J2440; J2704; J2720; J2930; J3010; J3370; J3475; J3490; J7030; J7040; J7050; J7060; J7120; P9045; P9047

== ENCOUNTER 2022-07-11 16:51 | Emergency (ER) | payer BC, MEDICAID ==
[~2022-07-11] VITALS: Ht 167.6 cm; Wt 72.0 kg
[~2022-07-11 16:51] MED LIST changes: +CLOP75TA34 PO; -DOCUMENT DATE & TIME OF BETA-BLOCKER PO ONE; +HYDR-3972 PO; +LOP12.5T PO; -LORazepam 2 mg/ml vial IV PRN; -METO25TA6 PO; -TICA90TA2 PO; -albuterol 2.5 MG/3 ML nebule NEB ONE; -ceFAZolin 1000mg inj ONE; -cefazolin/dext.iso 2gm/50ml IV ONE; -epiNEPHrine 1 mg/ml inj ONE; -famotidine 20mg tablet PO ONE; -gabapentin 400mg capsule PO ONE; -ringers solution, lacted 1,000 ML IV SCH; -vancomycin 1,500 MG in NS 300ml IV soln IV ONE
[2022-07-11] MEDS ORDERED: acetaminophen 325mg tablet PO STA (17:17)
[2022-07-11] MEDS ORDERED: ondansetron/PF 4mg/2ml inj IV ONE (17:20)
[2022-07-11] MEDS ORDERED: normal saline 1000ML IV soln IV ONE (17:20)
[2022-07-11 18:34] LABS: BASOPHILS # (AUTO) 0.1 X10'3 (0-0.2); BASOPHILS % (AUTO) 0.4 % (0-1); EOSINOPHILS # (AUTO) 0.1 X10'3 (0-0.9); EOSINOPHILS % (AUTO) 0.8 % (0-6); HEMATOCRIT 44.4 % (42.0-52.0); HEMOGLOBIN 14.4 g/dl (14.0-17.9); LYMPHOCYTES # (AUTO) 0.3 X10'3 (1.1-4.8); LYMPHOCYTES % (AUTO) 2.1 % (21-51); MEAN CORPUSCULAR HEMOGLOBIN 30.9 PG (27.0-31.0); MEAN CORPUSCULAR HGB CONC 32.5 g/dL (33.0-36.5); MEAN PLATELET VOLUME 7.9 FL (7.4-10.4); MONOCYTES # (AUTO) 0.6 X10'3 (0-0.9); MONOCYTES % (AUTO) 4.1 % (2-12); NEUTROPHILS # (AUTO) 14.1 X10'3 (1.8-7.7); NEUTROPHILS % (AUTO) 92.6 % (42-75); PLATELET COUNT 212 X10'3 (140-440); RED BLOOD COUNT 4.68 X10'6 (4.70-6.10); RED CELL DISTRIBUTION WIDTH 14.8 % (11.5-14.5); WHITE BLOOD COUNT 15.2 X10'3 (4.5-11.0)
[2022-07-11 18:54] LABS: ALANINE AMINOTRANSFERASE 15 U/L (12-78); ALBUMIN 3.5 G/DL (3.4-5.0); ALBUMIN/GLOBULIN RATIO 1.3 (1.1-1.5); ALKALINE PHOSPHATASE 74 IU/L (46-116); ANION GAP 7 (8-16); ASPARTATE AMINO TRANSFERASE 15 U/L (10-37); BILIRUBIN,TOTAL 0.4 MG/DL (0.1-1.0); BLOOD UREA NITROGEN 21 MG/DL (7-18); CALCIUM 7.8 MG/DL (8.5-10.1); CHLORIDE 110 MMOL/L (99-107); GLUCOSE 112 MG/DL (70-104); POTASSIUM 4.4 MMOL/L (3.5-5.1); SODIUM 142 MMOL/L (135-145); TOTAL CARBON DIOXIDE 25.3 MMOL/L (24-32); TOTAL PROTEIN 6.2 G/DL (6.4-8.2); eGFR 74 ML/MIN
[2022-07-11] MEDS ORDERED: PRED20TA PO (19:35)
[2022-07-11] MEDS ORDERED: AMOX-117 PO (19:35)
--- NOTE | 2022-07-11 19:38 | NUR ---
call to Patricia for ride home
--- NOTE | 2022-07-11 20:15 | NUR ---
daughter in law of patient will be getting pt in about 30min
[2022-07-11 20:17] VITALS: BP 114/67
== END 2022-07-11 20:48 | disposition home or self-care (01) ==
LOC: ER 16:52
DX: J40 Bronchitis, not specified as acute or chronic (principal); Z20.822 Contact with and (suspected) exposure to COVID-19; J44.1 Chronic obstructive pulmonary disease with (acute) exacerbation; Z88.8 Allergy status to other drugs, medicaments and biological substances; Z91.018 Allergy to other foods
CPT/HCPCS: 36415; 71045; 80053; 83605; 84145; 84484; 85025; 87040; 87502; 87503; 87635; 93005; 96361; 96374; 99285; C9803; J2405; J7030